=== PATIENT | female | born 1960 | race Caucasian/White ===

== ENCOUNTER 2021-09-16 10:10 | Emergency (ER) | payer MEDICAID, OTHER ==
[~2021-09-16] VITALS: Ht 167.6 cm; Wt 69.0 kg
[2021-09-16] MEDS ORDERED: TETANUS, DIPHTHERIA, PERTUSSIS VAC/PF 0.5ML (>10YR OLD) IM ONE (10:45)
[2021-09-16] MEDS ORDERED: BACITRACIN ZINC OINT UDPKT TOP ONE (10:45)
[2021-09-16] MEDS ORDERED: LIDOCAINE HCL/PF 1% 10 MG/ML 5ML VIAL INFIL ONE (10:45)
[2021-09-16] MEDS ORDERED: HYDROCODONE/ACETAMINOPHEN 5/325MG TABLET PO ONE (10:45)
[2021-09-16] MEDS ORDERED: BO1 TP (12:30)
[2021-09-16] MEDS ORDERED: T3 PO (12:30)
[2021-09-16] MEDS ORDERED: IBUP-2029 MT (12:30)
[2021-09-16 13:15] VITALS: BP 121/85
== END 2021-09-16 13:17 | disposition home or self-care (01) ==
LOC: ER 10:10
DX: S91.012A Laceration without foreign body, left ankle, initial encounter (principal); W22.8XXA Striking against or struck by other objects, initial encounter; Y93.89 Activity, other specified; Y92.018 Other place in single-family (private) house as the place of occurrence of the external cause
CPT/HCPCS: 12002; 73610; 73630; 90471; 90715; 99284; J3490

== ENCOUNTER 2021-09-18 14:11 | Emergency (ER) | payer MEDICAID ==
[~2021-09-18] VITALS: Ht 165.1 cm; Wt 73.0 kg
[~2021-09-18 14:11] MED LIST: BO1 TP; IBUP-2029 MT; T3 PO
[2021-09-18] MEDS ORDERED: HYDROCODONE/ACETAMINOPHEN 5/325MG TABLET PO ONE (16:30)
[2021-09-18 17:46] VITALS: BP 115/60
== END 2021-09-18 17:50 | disposition home or self-care (01) ==
LOC: ER 14:11
DX: S91.012D Laceration without foreign body, left ankle, subsequent encounter (principal); X58.XXXD Exposure to other specified factors, subsequent encounter
CPT/HCPCS: 73610; 73630; 99284

== ENCOUNTER 2021-09-24 18:26 | Emergency (ER) | payer MEDICAID ==
[~2021-09-24] VITALS: Ht 162.6 cm; Wt 64.0 kg
[2021-09-24 18:39] VITALS: BP 113/59
[2021-09-24 20:39] LABS: CHLORIDE 107 mEq/L (98-107)
[2021-09-24 20:41] LABS: BASOPHILS % 0.7 % (0.0-2.0); EOSINOPHILS % 4.9 % (0.0-5.0); HEMOGLOBIN. 11.2 g/dL (12.0-16.0); LYMPHOCYTES % 29.5 % (20.0-50.0); MEAN CORPUSCULAR HEMOGLOBIN 30.6 pg (28.0-32.0); MEAN CORPUSCULAR VOLUME 90.5 fL (81.0-99.0); MONOCYTES % 7.5 % (2.0-8.0); NEUTROPHILS % 57.4 % (40.0-76.0); PLATELET 425 x1000/uL (130-400); RED BLOOD CELL COUNT 3.65 mill/uL (4.2-5.4); RED CELL DISTRIBUTION WIDTH 12.6 % (11.6-14.6)
[2021-09-24] MEDS ORDERED: CEPH500T MT (21:41)
[2021-09-24] MEDS ORDERED: HYDR-4001 MT (21:41)
== END 2021-09-24 22:44 | disposition home or self-care (01) ==
LOC: ER 18:26
DX: S90.852A Superficial foreign body, left foot, initial encounter (principal); L03.116 Cellulitis of left lower limb; Z90.49 Acquired absence of other specified parts of digestive tract; X58.XXXA Exposure to other specified factors, initial encounter; Y93.89 Activity, other specified; Y92.89 Other specified places as the place of occurrence of the external cause
CPT/HCPCS: 36415; 73600; 73620; 80048; 85025; 99284

== ENCOUNTER 2021-10-01 12:41 | Emergency (ER) | payer MEDICAID ==
[~2021-10-01] VITALS: Ht 160 cm; Wt 68.0 kg
[~2021-10-01 12:41] MED LIST changes: +CEPH500T MT; +HYDR-4001 MT
[2021-10-01] MEDS ORDERED: CLINDAMYCIN 600 MG in DEXTROSE 5% WATER 50 ML IV ONE (14:45)
[2021-10-01] MEDS ORDERED: MORPHINE SULFATE 4 MG/ML CPJ (NOT FOR IM USE) IV ONE ×2 (14:45→18:30)
[2021-10-01] MEDS ORDERED: VANCOMYCIN 1G PREMIX 200 ML IV SCH (14:45)
[2021-10-01] MEDS ORDERED: ONDANSETRON HCL 4MG/2ML INJ IV ONE (14:45)
[2021-10-01 15:42] LABS: EOSINOPHILS % 3.9 % (0.0-5.0); HEMATOCRIT. 36.8 % (36.0-48.0); HEMOGLOBIN. 12.5 g/dL (12.0-16.0); LYMPHOCYTES % 43.1 % (20.0-50.0); MEAN CORPUSCULAR HEMOGLOBIN 30.3 pg (28.0-32.0); MEAN CORPUSCULAR VOLUME 89.6 fL (81.0-99.0); MEAN PLATELET VOLUME 7.3 fl (7.4-10.4); MONOCYTES % 6.2 % (2.0-8.0); NEUTROPHILS % 45.8 % (40.0-76.0); PLATELET 430 x1000/uL (130-400); RED CELL DISTRIBUTION WIDTH 12.8 % (11.6-14.6)
[2021-10-01 15:47] LABS: CHLORIDE 103 mEq/L (98-107)
[2021-10-01 23:33] VITALS: BP 130/71
== END 2021-10-02 | disposition short-term general hospital (02) ==
LOC: ER 12:41
DX: L03.116 Cellulitis of left lower limb (principal); S81.812D Laceration without foreign body, left lower leg, subsequent encounter; X58.XXXD Exposure to other specified factors, subsequent encounter; Z90.49 Acquired absence of other specified parts of digestive tract; Z20.822 Contact with and (suspected) exposure to COVID-19
CPT/HCPCS: 36415; 80053; 85025; 87040; 87426; 96365; 96375; 96376; 99285; J2270; J2405; J3490; J7060